=== PATIENT | male | born 1985 | race Caucasian/White ===

== ENCOUNTER 2019-05-20 22:40 | Inpatient (IN) | payer OTHER ==
[2019-05-20] MEDS: SODIUM CHLORIDE 0.9% 1L BAG IV* (23:13)
[2019-05-20] MEDS: CEFEPIME 2GM/50 ML (PMX) 50 ML IVPB (23:15)
[2019-05-20] MEDS: VANCOMYCIN 1 GM (PMX) 250 ML IVPB (23:15)
[2019-05-20] MEDS: morphine 4 MG/ML VIAL IV (23:39)
[2019-05-21] MEDS ORDERED: ONDANSETRON 4 MG INJ IV ×2 (01:30→02:00)
[2019-05-21] MEDS ORDERED: ACETAMINOPHEN 325 MG TAB PO (01:30)
[2019-05-21] MEDS: ACETAMINOPHEN 325 MG TAB PO ×2 (01:45→17:33)
[2019-05-21] MEDS ORDERED: NACL 0.9% 3 ML SYG IV (02:00)
[2019-05-21] MEDS ORDERED: MAGNESIUM HYDROXIDE 30ML CUP PO (02:00)
[2019-05-21] MEDS ORDERED: DOCUSATE SODIUM 100 MG CAP PO (02:00)
[2019-05-21] MEDS ORDERED: BISACODYL 10 MG SUPP PR (02:00)
[2019-05-21] MEDS: VANCOMYCIN IV PER PHARMACY XX (02:32)
[2019-05-21] MEDS: morphine 2 MG INJ IV ×3 (02:35→17:33)
[2019-05-21] MEDS: SOD CHLORIDE 0.9% 1,000 ML IV ×3 (04:09→22:06)
[2019-05-21] MEDS: VANCOMYCIN HCL 2 GM in SOD CHLORIDE 0.9% 500 ML IVPB (04:18)
[2019-05-21] MEDS: HYDROCODONE/APAP (5/325) TAB PO (04:24)
[2019-05-21] MEDS: FAMOTIDINE 20 MG INJ IV ×2 (09:34→20:52)
[2019-05-21] MEDS: ENOXAPARIN 40 MG/0.4 ML SYG SC (09:36)
[2019-05-21] MEDS: CEFEPIME 2GM/50 ML (PMX) 50 ML IVPB (10:00)
[2019-05-21] MEDS ORDERED: VANCOMYCIN 1.5 GM/NS 250 ML 250 ML IVPB (12:00)
[2019-05-21] MEDS: CEFTRIAXONE 2 GM/50 ML (PMX) 50 ML IVPB (12:22)
[2019-05-22] MEDS: morphine 2 MG INJ IV (00:37)
[2019-05-22] MEDS: SOD CHLORIDE 0.9% 1,000 ML IV (07:55)
[2019-05-22] MEDS: FAMOTIDINE 20 MG INJ IV (08:27)
[2019-05-22] MEDS: ENOXAPARIN 40 MG/0.4 ML SYG SC (08:29)
[2019-05-22] MEDS: CEFTRIAXONE 2 GM/50 ML (PMX) 50 ML IVPB (11:04)
== END 2019-05-22 12:48 | disposition home or self-care (01) | DRG 603 ==
LOC: E/R 22:40 → MS3 05-21 01:30 → MS1 05-21 08:05
DX: L03.116 Cellulitis of left lower limb (principal); Z68.44 Body mass index [BMI] 60.0-69.9, adult; E87.2 Acidosis; L03.115 Cellulitis of right lower limb; E66.01 Morbid (severe) obesity due to excess calories
CPT/HCPCS: 36415; 71045; 80053; 81001; 81003; 83605; 83735; 84484; 85025; 85610; 85730; 87040-91; 87086; 93005; 96365; 96366; 96368; 96375; 99285-25